=== PATIENT | male | born 1985 | race Caucasian/White ===

== ENCOUNTER 2016-12-22 11:32 | Emergency (ER) | payer MEDICAID ==
[~2016-12-22] VITALS: Ht 175.3 cm; Wt 82.0 kg
[2016-12-22 12:57] LABS: BASOPHILS % 0.5 % (0.0-2.0); EOSINOPHILS % 0.4 % (0.0-5.0); LYMPHOCYTES % 29.4 % (20.0-50.0); MEAN CORPUSCULAR HEMOGLOBIN 30.6 pg (28.0-32.0); MEAN PLATELET VOLUME 9.1 fl (7.4-10.4); MONOCYTES % 7.9 % (2.0-8.0); NEUTROPHILS % 61.8 % (40.0-76.0); PLATELET 220 x1000/uL (130-400); RED BLOOD CELL COUNT 4.89 mill/uL (4.7-6.1); RED CELL DISTRIBUTION WIDTH 13.2 % (11.6-14.6)
[2016-12-22 13:06] LABS: CARBON DIOXIDE 32 mEq/L (21-32); CHLORIDE 105 mEq/L (98-107)
[2016-12-22 13:47] VITALS: BP 131/76
== END 2016-12-22 13:47 | disposition home or self-care (01) ==
LOC: ER 11:35
DX: G89.29 Other chronic pain (principal); M79.672 Pain in left foot; M79.671 Pain in right foot; E11.9 Type 2 diabetes mellitus without complications
CPT/HCPCS: 36415; 80048; 85025; 99284